=== PATIENT | male | born 1980 | race Caucasian/White ===

== ENCOUNTER 2024-04-03 13:25 | Outpatient (CLI) | payer BC | END 2024-04-03 13:26 | disposition home or self-care (01) | LOC: LABBT 13:25 | PROVIDERS: ATTEND Specialist | DX: Z01.810 Encounter for preprocedural cardiovascular examination (principal); K13.79 Other lesions of oral mucosa; J35.1 Hypertrophy of tonsils; J34.2 Deviated nasal septum; J34.3 Hypertrophy of nasal turbinates | CPT/HCPCS: 93005; 93010 ==